=== PATIENT | female | born 1975 | race Caucasian/White ===

== ENCOUNTER → 2017-02-05 | Outpatient (CLI) | payer BC | END | disposition home or self-care (01) | LOC: C.PAPS 13:37 | PROVIDERS: ATTEND Physician Assistant | DX: Z01.419 Encounter for gynecological examination (general) (routine) without abnormal findings (principal) ==

== ENCOUNTER → 2017-06-11 | Day surgery (SDC) | payer BC, OTHER ==
[2017-06-07 10:51] VITALS: Ht 161.3 cm; Wt 71.8 kg
[2017-06-08 17:16] LABS: MEAN CELL VOLUME 93.6 fL (80-100); MEAN CORPUSCULAR HGB CONC 34.2 g/dl (32-36); MEAN PLATELET VOLUME 8.9 fL (7.4-10.4); PLATELET COUNT 291 K/uL (130-400); RED BLOOD COUNT 4.06 M/uL (4.2-5.4); WHITE BLOOD COUNT 8.51 K/uL (4.8-10.8)
[~2017-06-11] VITALS: Ht 161.3 cm; Wt 71.8 kg
[~2017-06-11] MED LIST: ATROPINE SULFATE 0.1 MG/ML 5ML SYR IV PRN; ATV/1 PO; BUPRTAB51 PO; BUSP30TA2 PO; CITA40TA12 PO; CLINDAMYCIN IV 900 MG in DEXTROSE 5% 100ML 100 ML IV ONE; DEXAMETHASONE SOD INJ 4 MG/ML VIAL ONE; EpHEDrine SULFATE INJ 50 MG/ML AMP IV PRN; FENTANYL CITRATE INJ 50 MCG/1 ML 2 ML VIAL ONE; KETOROLAC TROMETHAMINE 30 MG/ML VIAL IV. PRN; KETOROLAC TROMETHAMINE 30 MG/ML VIAL ONE; LACTATED RINGER'S 1000ML 1,000 ML IV SCH; LAMO150T PO; LIDOCAINE HCL 2% 2 ML VIAL (20MG/ML) ONE; MIDAZOLAM HCL 1 MG/ML 2ML VIAL ONE; MULTTAB58 PO; ONDANSETRON INJ 2 MG/ML 2 ML VIAL IV PRN; ONDANSETRON INJ 2 MG/ML 2 ML VIAL ONE; OXYCODONE/ACETAMINOPHEN 5-325 TAB PO PRN; PROMETHAZINE HCL INJ 25 MG in SODIUM CHLORIDE 0.9% 50ML 50 ML IV PRN; PROPOFOL IV EMULSION 10 MG/ML 20 ML VIAL IV ONE; SODIUM CHLORIDE 0.9% 1000ML 1,000 ML IV SCH; [UNRECOGNIZED DRUG - CODE] PO
--- NOTE | 2017-06-11 06:55 | History & Physical Bridge - [place] ---
H&P Re-Evaluation Bridge Note: I have examined the patient, reviewed the History & Physical and in the interval since the performance of the History & Physical I have noted the following changes of clinical significance: No changes noted
[2017-06-11] MEDS: FENTANYL CITRATE INJ 50 MCG/1 ML 2 ML VIAL IV PRN ×3 (08:10→08:53)
--- NOTE | 2017-06-11 08:10 | [facility] Post Operative Brief Note ---
Immediate Operative Summary Operative Date Jun 11, 2017. Pre-Operative Diagnosis Irregular Bleeding Post-Operative Diagnosis Same with Uterine Perforation Procedure(s) Performed Dilitation and Hysteroscopy Surgeon Dr. Alex Berry Transmission Supervisor Surgeon(s) None Estimated Blood Loss 5 cc Findings Retroverted uterus, unable to dilate cervix to enter cavity. Uterine perforation - midline, at fundus of uterus. No bleeding, no obvious bowel perforation. +bowel sounds, benign abdominal exam at conclusion of case. Specimens None Drains bladder emptied for 20cc prior to case Anesthesia general Complication(s) Uterine perforation - midline, fundal. Disposition Recovery Room / PACU
[2017-06-11 09:13] VITALS: TEMP 37.1
--- NOTE | 2017-06-11 09:47 | Discharge Instructions-SurgCtr ---
Discharge Instructions Date of Service Jun 11, 2017. Visit Reason for Visit: thickened endometrial lining Discharge Discharge Diagnosis / Problem: same Discharge Goals Goal(s): Diagnostic testing, Therapeutic intervention Activity Recommendations Activity Limitations: per Instructions/Follow-up section Anesthesia . Post Anesthesia Instructions: If you have had General Anesthesia or IV Sedation: * Do not drive today. * Resume driving when surgeon permits. * Do not make important decisions or sign legal documents today. * Call surgeon for: 1. Temperature elevations greater than 101 degrees F. 2. Uncontrollable pain. 3. Excessive bleeding. 4. Persistent nausea and vomiting. 5. Medication intolerance (nausea, vomiting or rash). * For nausea and vomiting use only clear liquids such as: tea, soda, bouillon until nausea subsides, then gradually increase diet as tolerated. * If you have any concerns or questions, call your surgeon's office. If physician is unavailable and it is an emergency, call 911 or go to the nearest emergency room. . Instructions / Follow-Up Instructions / Follow-Up ACTIVITY RECOMMENDATIONS: * Avoid tampons, douching, hot tubs, pools, and intercourse until bleeding has stopped. * May shower as usual. * No strenuous activity for 24-48 hours. After 24-48 hours, you may do anything you feel like doing (driving and sports are okay). SPECIAL CARE INSTRUCTIONS: Special Diet: * Mild nausea may occur in the immediate post-operative period. * Take clear liquids such as tea, cola or bouillon until all nausea has subsided; you may then resume your normal diet. Special Care: * Light bleeding and vaginal spotting can last from a few days to 3-4 weeks. Call your doctor if bleeding becomes heavier than the heaviest part of your period. * Check your temperature twice a day for one week. If it goes above 100.4 degrees Fahrenheit (38.0 Celsius), notify your doctor. * Call your doctor's office for an appointment for 6 weeks after your surgery. FOLLOW-UP VISIT: Call your doctor's office for an appointment for 6 weeks after your surgery. Diet Recommendations Home Diet: resume previous diet Procedures Procedures Performed: Dilitation and Hysteroscopy Pending Studies Studies pending at discharge: no Medical Emergencies . Who to Call and When: Medical Emergencies: If at any time you feel your situation is an emergency, please call 911 immediately. . Non-Emergent Contact Non-Emergency issues call your: Primary Care Provider, Curriculum Writer . . "Provider Documentation" section prepared by Darcy Berry. .
[2017-06-11 09:55] VITALS: BP 121/81; PULSE 86; O2SAT 97
--- NOTE | 2017-06-11 09:59 | Anesthesia Progress Nt - [facility] ---
Anesthesia Post Op Note Date & Time Jun 11, 2017 at 09:58 Vital Signs Pain Intensity: 0 Vital Signs Past 12 Hours Date Time Temp Pulse Resp B/P (MAP) Pulse Ox O2 Delivery O2 Flow Rate FiO2 06/11/17 09:55 86 16 121/81 (94) 97 Room Air 06/11/17 09:13 37.1 71 16 110/74 (86) 95 Room Air 06/11/17 09:01 114/81 06/11/17 09:01 37.1 68 12 114/81 98 Room Air 06/11/17 09:01 114/81 06/11/17 08:59 78 16 06/11/17 08:59 80 16 98 06/11/17 08:59 78 16 06/11/17 08:59 80 16 98 06/11/17 08:56 113/71 06/11/17 08:56 113/71 06/11/17 08:54 70 18 98 06/11/17 08:54 73 18 06/11/17 08:54 73 18 06/11/17 08:54 70 18 98 06/11/17 08:51 110/74 06/11/17 08:51 110/74 06/11/17 08:49 77 20 06/11/17 08:49 77 20 06/11/17 08:49 76 20 100 06/11/17 08:49 76 20 100 06/11/17 08:46 116/79 06/11/17 08:46 116/79 06/11/17 08:44 74 7 93 06/11/17 08:44 74 7 06/11/17 08:44 74 7 93 06/11/17 08:44 74 7 06/11/17 08:41 118/74 06/11/17 08:41 118/74 06/11/17 08:39 76 4 06/11/17 08:39 76 4 98 06/11/17 08:39 76 4 06/11/17 08:39 76 4 98 06/11/17 08:36 118/83 06/11/17 08:36 118/83 06/11/17 08:34 84 20 06/11/17 08:34 85 20 99 06/11/17 08:34 85 20 99 06/11/17 08:34 84 20 06/11/17 08:31 122/80 06/11/17 08:31 122/80 06/11/17 08:29 73 4 06/11/17 08:29 73 4 99 06/11/17 08:29 73 4 06/11/17 08:29 73 4 99 06/11/17 08:26 127/81 17 08:26 127/81 06/11/17 08:24 77 10 100 06/11/17 08:24 77 10 100 06/11/17 08:24 75 10 06/11/17 08:24 75 10 06/11/17 08:21 117/82 06/11/17 08:21 117/82 06/11/17 08:19 76 10 06/11/17 08:19 76 10 06/11/17 08:19 76 10 100 06/11/17 08:19 76 10 100 06/11/17 08:16 132/88 06/11/17 08:16 132/88 06/11/17 08:14 75 10 100 06/11/17 08:14 75 10 100 06/11/17 08:14 76 10 06/11/17 08:14 76 10 06/11/17 08:11 136/90 06/11/17 08:11 136/90 06/11/17 08:09 79 9 06/11/17 08:09 78 9 100 06/11/17 08:09 79 9 06/11/17 08:09 78 9 100 06/11/17 08:06 130/86 06/11/17 08:06 130/86 06/11/17 08:04 86 14 06/11/17 08:04 88 14 100 06/11/17 08:04 86 14 06/11/17 08:04 88 14 100 06/11/17 08:01 137/90 06/11/17 08:01 137/90 06/11/17 08:00 141/89 06/11/17 08:00 141/89 06/11/17 07:59 36.1 91 12 141/89 97 Mask 4 06/11/17 06:37 36.6 70 18 133/86 (102) 97 Room Air Notes Mental Status: alert / awake / arousable, participated in evaluation Pt Amnestic to Procedure: Yes Nausea / Vomiting: adequately controlled Pain: adequately controlled Airway Patency, RR, SpO2: stable & adequate BP & HR: stable & adequate Hydration State: stable & adequate Anesthetic Complications: no major complications apparent
--- NOTE | 2017-06-11 19:33 | OPERATIVE REPORT ---
DATE OF OPERATION: 06/11/2017 PREOPERATIVE DIAGNOSIS: Irregular bleeding. POSTOPERATIVE DIAGNOSIS: Same with uterine perforation. PROCEDURE PERFORMED: Dilation hysteroscopy. SURGEON: Darcy Berry DO SECURITY TECH: None. ESTIMATED BLOOD LOSS: 5 mL. FINDINGS: Retroverted uterus, unable to dilate the cervix and cavity, uterine perforation at midline, fundus with uterus. No bleeding, no obvious bowel perforation. At conclusion of case, there were positive bowel sounds with benign abdominal exam. SPECIMENS: None. DRAINS: Bladder emptied for 20 mL prior to case. ANESTHESIA: General. COMPLICATIONS: Uterine perforation midline, fundal. DISPOSITION: Stable and good to recovery room. HISTORY OF PRESENT ILLNESS: The patient is a 42-year-old G4, P3-0-1-3 with heavy irregular bleeding who was planned to undergo a hysteroscopy, D&C with MyoSure removal of endometrial polyp. Her ultrasound had shown a microcystic endometrial lining 9.5 mm with a vascular mass with a stalk. DESCRIPTION OF PROCEDURE: The patient was seen in the preoperative holding area where risks, benefits, alternatives were reviewed. She had previously signed informed consent in the office under no duress. She was taken to the operating room where general anesthesia was administered. She was prepared and draped in the usual sterile fashion with feet in candy cane stirrups with sequential compression devices in place. A timeout was confirmed. The bladder was drained for approximately 20 mL of clear yellow urine. A weighted speculum was placed in the vagina, cervix was visualized and its anterior lip was grasped with a single tooth tenaculum. Multiple attempts at cervical dilation were made first using the uterine sound, next attempting dilation with lacrimal duct dilators; these attempts were unsuccessful; therefore the hysteroscope was inserted through the cervix with an attempt at cervical dilation with hydrodistention. The hysteroscope visualization showed what appeared to be a false cavity as I could not make out tubal ostia or appearance of endometrial tissue. The hysteroscope was withdrawn and additional attempts were made to dilate the cervix at this time using an additional single tooth tenaculum on the posterior lip of the cervix. The attempts were made with a blunt dilator and at this time is when I believe the uterus was perforated as during attempt at dilation felt tissue "give" subsequent insertion of the hysteroscope along with the same tract revealed visualization of the bowel. No obvious bleeding or bowel injury was noted. Due to perforation into the cavity, 900 mg of clindamycin IV was given as antibiotic prophylaxis. The hysteroscope was withdrawn and the procedure was then aborted. All instruments were removed from the vagina and excellent hemostasis was noted. The patient was then awoken from anesthesia and taken to the recovery room in stable and good condition, after she awoke from anesthesia and was in phase 2 of postoperative recovery. The patient was tolerating p.o. liquids. I went to discuss the uterine perforation and inability to collect an endometrial sample and also inability to treat endometrial polyp. All questions of the patient and her were answered. We discussed the potential complications of a uterine perforation including damage to bowel, bladder, blood vessels and patient was instructed to call immediately or report to the Emergency Department with problems such as abdominal distention, nausea, vomiting, severe pain, heavy bleeding, weakness, dizziness. She and her stated their understanding. Abdominal exam again was benign and the patient was discharged to home in stable and good condition. For future treatment purposes, discussed the possibility of attempting a repeat dilation and curettage with the patient and her ; however, this may not be successful as I believe she has an increased risk of uterine perforation again with future attempts. Could attempt endometrial biopsy in the office; however, because endometrial cavity was not discovered during exam under anesthesia, I believe this would again prove very difficult in the office setting. Discussed attempt at treatment with progesterone and follow up with ultrasonography to monitor endometrial thickness and also watch patient's symptomatic bleeding. Also, discussed option of proceeding to hysterectomy due to inability to sample the lining and inability to perform dilation and curettage in the operating room. The patient will consider her options. We will rediscuss at her 2-week postoperative followup visit in the office. I attest to the content of the Intraoperative Record and any orders documented therein. Any exception s are noted below.
== END | disposition home or self-care (01) ==
LOC: X.SURG 06:25
PROVIDERS: ATTEND Obstetrics & Gynecology
DX: N85.4 Malposition of uterus (principal); N99.72 Accidental puncture and laceration of a genitourinary system organ or structure during other procedure; N92.6 Irregular menstruation, unspecified; N84.0 Polyp of corpus uteri; Z83.49 Family history of other endocrine, nutritional and metabolic diseases; Z82.49 Family history of ischemic heart disease and other diseases of the circulatory system; F41.8 Other specified anxiety disorders